=== PATIENT | male | born 1995 | race Caucasian/White ===

== ENCOUNTER 2017-02-07 06:47 | Day surgery (SDC) | payer OTHER ==
[2017-02-06 12:34] VITALS: BMI 25.4
[2017-02-07] MEDS ORDERED: Midazolam HCl 2 mg/2 ml Vial ONE (08:07)
[2017-02-07] MEDS ORDERED: Fentanyl 100 MCG/2 ML VIAL ONE ×2 (08:07)
[2017-02-07] MEDS ORDERED: Bupivacaine/Epinephrine 0.25% 30 ML VIAL ONE (08:33)
--- NOTE | 2017-02-07 10:55 | OP ---
DATE OF PROCEDURE: 02/07/2017 SURGEON: Dr. Braydon Vital PREOPERATIVE DIAGNOSES: Anterior tongue lesion. POSTOPERATIVE DIAGNOSES: Anterior tongue lesion. PROCEDURE PERFORMED: Excision of anterior tongue lesion with primary closure. PROCEDURE IN DETAIL: After consent was obtained, the patient was identified, brought to the operatin g room and placed on the table in supine position. Anesthesia was obtained with laryngeal mask and t he area of intended surgery was infiltrated with 0.25% Marcaine with 1:100,000 epinephrine. We then made a wedge incision into the anterior aspect of the tongue musculature and excised the exophytic le juan antonio. Hemostasis was obtained with electrocautery and the wound was closed in layers with Monocryl f or the deep layers and chromic inverted mattress sutures for the mucosa. The patient was then awaken ed and taken to recovery room where he remained in stable condition prior to discharge home.
[2017-02-07] MEDS ORDERED: Ondansetron HCl/PF 4 MG/2 ML Vial ONE (15:36)
[2017-02-07] MEDS ORDERED: Propofol 200 MG/20 ML VIAL ONE (15:36)
[2017-02-07] MEDS ORDERED: Lidocaine 1% PF 5 ML VIAL ONE (15:36)
[2017-02-07] MEDS ORDERED: Dexamethasone 20 MG/5 ML VIAL ONE (15:36)
== END 2017-02-07 10:30 | disposition home or self-care (01) ==
LOC: SDC 06:47
PROVIDERS: ATTEND Specialist
PROC: 0CB7XZZ Excision of Tongue, External Approach (ICD-10-PCS; principal; 2017-02-07)
DX: D10.1 Benign neoplasm of tongue (principal); F41.9 Anxiety disorder, unspecified; F90.9 Attention-deficit hyperactivity disorder, unspecified type; Z86.19 Personal history of other infectious and parasitic diseases; Z79.899 Other long term (current) drug therapy; Z98.890 Other specified postprocedural states
CPT/HCPCS: 88305; J1100; J2001; J2250; J2405; J2704; J3010